=== PATIENT | female | born 1960 | race Hispanic/Latino ===

== ENCOUNTER 2019-05-22 08:18 | Day surgery (SDC) | payer BC ==
--- OUTSIDE RECORDS SUMMARY | 2019-05-22 08:20 | XMS REPORT ---
:1960 Author Organization [facility] Address [address] [place] [address] Dr. Rocha [address] [place] [id number] Care Team Providers Name Role Phone Unavailable Unavailable Unavailable Problems This patient has no known problems. Allergies, Adverse Reactions, Alerts This patient has no known allergies or adverse reactions. Medications This patient has no known medications.
[2019-05-22] MEDS ORDERED: Ringers Lactate 1,000 ML IV ONE (08:44)
[2019-05-22] MEDS: OXYMETAZOLINE HCL 0.05% 15ML NAS ONE ×3 (08:45→09:00)
[2019-05-22] MEDS ORDERED: propofoL 200 MG/20 ML VIAL IV ONE (09:22)
[2019-05-22] MEDS ORDERED: MIDAZOLAM HCL 2 MG/2 ML INJ ONE (09:22)
[2019-05-22] MEDS ORDERED: dexAMETHasone 10 MG/ML VIAL ONE (09:22)
[2019-05-22] MEDS ORDERED: LIDOCAINE 2% MPF 5 ML VIAL ONE (09:23)
[2019-05-22] MEDS ORDERED: FENTANYL CITR 250 MCG/5 ML ONE (09:23)
[2019-05-22] MEDS ORDERED: ROCURONIUM 50 MG/5 ML VIAL IV ONE (09:23)
[2019-05-22] MEDS ORDERED: GLYCOPYRROLATE 0.2 MG/ML SYR ONE ×2 (09:28→10:56)
[2019-05-22] MEDS ORDERED: OXYMETAZOLINE HCL 0.05% 15ML NAS ONE (09:55)
[2019-05-22] MEDS ORDERED: NA CHLORIDE 0.9% 0 ML ONE (09:55)
[2019-05-22] MEDS ORDERED: LIDOCAINE 1% W/EPI 1:100,000 MDV 20 ML VIAL ONE (09:55)
[2019-05-22] MEDS ORDERED: NEOSTIGMINE 1 MG/ML -10 ML VIAL ONE (10:58)
[2019-05-22] MEDS: LABETALOL HCL 100 MG/20 ML ONE ×2 (11:50→12:06)
[2019-05-22] MEDS: LABETALOL 20 MG/4ML SYRINGE IV ONE ×2 (11:50→12:06)
[2019-05-22] MEDS: HYDRALAZINE HCL 20 MG/ML VIAL ONE ×2 (12:22→12:31)
[2019-05-22 12:39] VITALS: O2SAT 98
[2019-05-22] MEDS ORDERED: TRAMADOL HCL 50 MG TAB ONE (13:35)
[2019-05-22 14:15] VITALS: TEMP 97.6
[2019-05-22 14:45] VITALS: BP 160/89
--- NOTE | 2019-05-22 22:11 | OP ---
Date of Procedure: 05/22/2019 Surgeon: Jacquie Pereira MD Preoperative Diagnoses: Chronic left maxillary sinusitis. Postoperative Diagnosis: Chronic left maxillary sinusitis. Indication For Procedure: The patient was initially evaluated in March of 2018 for left tinnitus, left sensorineural hearing loss and dizziness. She underwent audiogram demonstrating left greater t [place] right sensorineural hearing loss. A MRI of the internal auditory canal was ordered but was not p erformed. She was subsequently seen in the emergency room for a zapping noise in her head with postn suraj drainage with mild facial pain and pressure. She underwent a CT scan and was noted to have inci dental opacification of the left maxillary sinus. Images were reviewed from that visit. Due to comp lete maxillary opacification with mild thickening of the bone, the patient was placed on a 20-day cou rse of antibiotics with post treatment CT scan ordered. The post treatment CT scan performed approxi mately 1 month later demonstrated normal paranasal sinuses with the exception of a very small right m ucous retention cyst of the lateral floor. The patient had improvement, but persistent mucosal thick ening of the left maxillary sinus including obstruction of the ostiomeatal complex. The remaining si nuses appeared clear and normal. The risks, benefits, and alternatives were discussed with the patie nt who agreed to proceed. Description Of Procedure: The patient was placed under general anesthesia via oral endotracheal tube . The head of bed was turned. The nasal hairs were trimmed and the left nasal cavity was packed wit h Afrin-soaked pledgets. After time for effect, the pledgets were removed and a 0-degree endoscope w as used to perform a nasal endoscopy. The middle meatus appeared normal with no active drainage. Th e middle turbinate and uncinate were injected with 1% lidocaine with epinephrine. A total of 1 mL wa s used. The middle turbinate was medialized using a [place] for better exposure of the middle meatus. The uncinate process was well visualized. A backbiter and 90-degree Blakesley were used to remove t he uncinate process and the maxillary os was identified and enlarged by removal of soft and bony tiss ues using the 90-degree Blakesley. The 30-degree endoscope was then used for better visualization an d photo documentation. The maxillary sinus appeared to have moderate thick clear and white mucus tra pped within it. This was suctioned and serially irrigated with sterile saline until the mucus was re moved. Additional refinement of the maxillary antrostomy was performed using a 90-degree Blakesley e nsuring the created ostomy was in continuity with the natural os to prevent mucus recirculation. Due to the degree of edema at the maxillary antrostomy, a propel steroid-eluting contour stent was place d under endoscopic guidance within the antrostomy to allow for local drug delivery during the healing . The nasal cavity was suctioned. There was no persistent bleeding and the patient was returned to care of anesthesia for awakening, extubation in the operating room, which proceeded without difficult y. Complications: None. Specimen: Sinonasal trimming. Disposition: Patient will be discharged home later today in the care of her family and follow up jamie Pereira in approximately 10-14 days for postop visit #1. FATMATA/BRADFORD Voice ID: [id number] Report ID: [id number]
== END 2019-05-22 14:54 | disposition home or self-care (01) ==
LOC: OR 08:18
PROVIDERS: ATTEND Otolaryngology
PROC: 09BR8ZZ Excision of Left Maxillary Sinus, Via Natural or Artificial Opening Endoscopic (ICD-10-PCS; principal; 2019-05-22 09:15)
DX: J32.0 Chronic maxillary sinusitis (principal); I10 Essential (primary) hypertension
CPT/HCPCS: 88304; 88311; 31267; J0360; J2704; J2710; J2250; J3010; J1100; J7120; J7030